=== PATIENT | male | born 1975 | race Caucasian/White ===

== ENCOUNTER 2020-04-13 10:13 | Emergency (ER) | payer OTHER ==
[~2020-04-13] VITALS: Ht 182.9 cm; Wt 83.9 kg
[2020-04-13 10:15] VITALS: BP 130/81
[2020-04-13 11:13] LABS: BASOPHILS % (AUTO) 1 % (0-1); EOSINOPHILS % (AUTO) 0 % (1-7); LYMPHOCYTES % (AUTO) 16 % (22-44); MEAN CORPUSCULAR HEMOGLOBIN 31.9 pg (27.5-34.5); MEAN PLATELET VOLUME 8.5 fL (7.4-10.4); MONOCYTES % (AUTO) 10 % (2-9); NEUTROPHILS % (AUTO) 74 % (42-75); PLATELET COUNT 186 x10^3/uL (130-400); RED BLOOD COUNT 5.66 x10^6/uL (4.38-5.82); RED CELL DISTRIBUTION WIDTH 13.3 % (9.4-14.8)
[2020-04-13 11:19] LABS: ALBUMIN 3.7 g/dL (3.4-5.0); ANION GAP 6 mmol/L (5-15); CALCIUM 8.9 mg/dL (8.5-10.1); CHLORIDE 104 mmol/L (98-107); CREATININE 1.65 mg/dL (0.7-1.3); MD NO
[2020-04-13 11:23] LABS: TROPONIN I < 0.015 ng/mL (0.000-0.045)
--- NOTE | 2020-04-13 11:51 | NUR ---
Patient given discharge instructions and they have confirmed that they understand the instructions. Patient stable and ambulatory with steady gait from ED.
== END 2020-04-13 11:52 | disposition home or self-care (01) ==
LOC: ED 11:30
DX: U07.1 COVID-19 (principal); N28.9 Disorder of kidney and ureter, unspecified; J18.9 Pneumonia, unspecified organism; R06.02 Shortness of breath; M79.10 Myalgia, unspecified site; R05 Cough; R00.0 Tachycardia, unspecified; R50.9 Fever, unspecified
CPT/HCPCS: 36415; 71045; 80048; 82040; 83605; 84484; 85025; 87040; 93005; 99285